=== PATIENT | male | born 1965 | race Caucasian/White ===

== ENCOUNTER 2017-05-25 14:28 | Emergency (ER) | payer OTHER ==
[~2017-05-25] VITALS: Ht 177.8 cm; Wt 93.9 kg
[~2017-05-25 14:28] MED LIST: AFRIN,GENASAL D15 ML BOTH NARES; ASPIR-LOW81 MG PO; BACLOFEN10 MG PO; BISOPROLOL FUMA10 MG PO; CELEBREX50 MG PO; CENTRUM SILVER1 EAC3 PO; CLONAZEPAM1 MG PO; HYDROCHLOROTH12.5 M3 PO; HYDROCHLOROTHIA25 MG PO; KADIAN10 MG PO; KADIAN60 MG PO; KENALOG,ARISTOC80 GM TP; KLONOPIN0.5 M1 PO; MORPHINE SULFAT15 M1 PO; OXYCODONE HCL10 MG PO; PRAZOSIN HCL5 MG PO; QUETIAPINE FUM100 MG PO; RISPERIDONE1 MG PO; ROXICODONE15 MG PO; VERAMYST10 GM BOTH NARES; WHEY PROTEIN P907 GM PO; XANAX0.25 MG PO; XANAX1 MG PO
[2017-05-25 15:04] LABS: HEMATOCRIT 44.1 % (38.0-50.0); MCH 29.3 PG (29.0-34.0); MCHC 33.8 G/DL (30.0-36.0); MCV 86.8 FL (86-99); MEAN PLAT.VOLUME 9.9 uM^3 (9.0-12.4); PLATELET COUNT 362 K/uL (156-360); RBC DIS.WIDTH-CV 14.7 % (11.8-14.6); RBC DIS.WIDTH-SD 47.1 % (39-53); RED BLOOD COUNT 5.08 M/uL (4.00-5.50); WHITE BLOOD COUNT 10.2 K/uL (4.1-10.2)
[2017-05-25 15:17] LABS: CHLORIDE 106 mEq/L (99-109); POTASSIUM 3.1 mEq/L (3.7-5.4); SODIUM 142 mEq/L (136-147)
[2017-05-25 15:19] LABS: GLUCOSE 140 mg/dL (70-99)
[2017-05-25 15:20] LABS: ANION GAP 17 MEQ/L (2-14)
[2017-05-25 15:21] LABS: TOTAL BILIRUBIN 0.4 mg/dL (0.0-1.0)
[2017-05-25 15:22] LABS: ALKALINE PHOSPHATASE 87 IU/L (3-129)
[2017-05-25 15:23] LABS: GFR ESTIMATE (CALCULATED) > 59 mL/min/
[2017-05-25 15:24] LABS: UREA NITROGEN (BUN) 5 mg/dL (9-23)
[2017-05-25 15:26] LABS: LIPASE 25 U/L (1.0-51.0)
[2017-05-25 15:33] LABS: ADD MIUA? YES; BILIRUBIN NEGATIVE; BLOOD NEGATIVE; COLOR YELLOW ((YELLOW)); GLUCOSE (STRIP) NEGATIVE; KETONES NEGATIVE; LEUKOCYTES NEGATIVE; NITRITE NEGATIVE; PROTEIN (STRIP) 30; SPECIFIC GRAVITY 1.016 (1.000-1.030); UROBILINOGEN 0.2 MG/DL (0.2-1.0)
[2017-05-25 15:35] LABS: BACTERIA NONE SEEN /HPF; EPITHELIAL CELLS NONE SEEN /HPF; MUCUS TRACE /LPF; RED BLOOD CELLS 0-5 /HPF (0-5); UCUL ADDED? NO; WHITE BLOOD CELLS 0-5 /HPF (0-5)
[2017-05-25] MEDS ORDERED: PHENERGAN25 MG PR (20:12)
[2017-05-25] MEDS ORDERED: ZOFRAN ODT4 MG PO (20:12)
[2017-05-25 20:33] VITALS: BP 117/92
== END 2017-05-25 20:35 | disposition home or self-care (01) ==
LOC: EME 14:28
DX: B34.9 Viral infection, unspecified (principal); R11.2 Nausea with vomiting, unspecified; R10.9 Unspecified abdominal pain; G89.29 Other chronic pain; F19.20 Other psychoactive substance dependence, uncomplicated; I10 Essential (primary) hypertension; Z87.442 Personal history of urinary calculi; Z87.820 Personal history of traumatic brain injury; Z88.0 Allergy status to penicillin
CPT/HCPCS: 80053; 81003; 83690; 85027; 99281; 99285; J1630; J1885; J2060; J2270; J2405; J2765; J7030